=== PATIENT | female | born 1960 | race Caucasian/White ===

== ENCOUNTER 2019-09-11 01:46 | Outpatient (CLI) | payer OTHER, SELFPAY ==
[2019-09-11 10:50] LABS: Anion Gap 7.5 mmol/L (3-11); BUN 17 mg/dL (7-18); CO2 30.5 mmol/L (21.0-32.0); CREATININE 0.67 mg/dL (0.55-1.02); Calcium 9.4 mg/dL (8.5-10.1); Calculated LDL 104 mg/dL (<100); Chloride 105 mmol/L (98-107); Cholesterol 180 mg/dL (<200); Glucose 83 mg/dL (74-106); HDL Cholesterol 49 mg/dL (40-60); Potassium 4.5 mmol/L (3.5-5.1); Sodium 143 mmol/L (136-145); Triglyceride 136 mg/dL (<150)
[2019-09-13 16:47] LABS: Hemoglobin A1C 5.4 % (3.8-5.6)
== END 2019-09-11 02:06 ==
PROVIDERS: PCP Nurse Practitioner Family; Visit Provider Nurse Practitioner Family
DX: Z00.00 Encounter for general adult medical examination without abnormal findings (principal); Z13.1 Encounter for screening for diabetes mellitus; Z13.220 Encounter for screening for lipoid disorders; Z13.228 Encounter for screening for other metabolic disorders
CPT/HCPCS: 36415; 80048; 80061; 83036

== ENCOUNTER 2020-03-06 01:05 | Outpatient (CLI) | payer OTHER, SELFPAY ==
--- NOTE | 2020-03-06 08:30 | DI.MAMMO_ITS ---
EXAM: MAMMO SCREENING CLINICAL HISTORY: screening,Z12.39 TECHNIQUE: Mammograms were interpreted according to the usual protocol including computer analysis w [employer] CAD system, tomosynthesis and C-view imaging. COMPARISON: 2009 through 2017 FINDINGS: The breasts are composed of scattered fibroglandular densities, Breast Density category B. No suspicious masses or suspicious microcalcifications are seen. No skin thickening or abnormal axillary lymph nodes are seen. There has been no significant change from prior exams. IMPRESSION: BI-RADS Category 1, Negative mammogram Yearly screening mammography is recommended. Breast Density Category B, scattered fibroglandular densities. A negative radiographic report should not delay biopsy if a dominant or clinically suspicious mass is present. Up to ten percent of cancers are not identified on mammography. A negative report may reinforce clinical impression. Adenosis and dense breasts may obscure an underlying neoplasm. False positive reports average 6 to 10%. Patient will receive a letter notifying them of these results.
== END 2020-03-06 01:25 ==
PROVIDERS: PCP Nurse Practitioner Family; Visit Provider Nurse Practitioner Family
DX: Z12.31 Encounter for screening mammogram for malignant neoplasm of breast (principal); R92.2 Inconclusive mammogram
CPT/HCPCS: 77063; 77067

== ENCOUNTER 2021-03-01 04:16 | Outpatient (CLI) | payer OTHER, SELFPAY ==
[2021-03-01 09:12] LABS: Anion Gap 8.2 mmol/L (3-11); BUN 14 mg/dL (7-18); CO2 27.8 mmol/L (21.0-32.0); CREATININE 0.8 mg/dL (0.55-1.02); Calcium 9.5 mg/dL (8.5-10.1); Calculated LDL 103 mg/dL (<100); Chloride 107 mmol/L (98-107); Cholesterol 180 mg/dL (<200); Glucose 97 mg/dL (74-106); HDL Cholesterol 64 mg/dL (40-60); Potassium 4.9 mmol/L (3.5-5.1); Sodium 143 mmol/L (136-145); Triglyceride 67 mg/dL (<150)
== END 2021-03-01 04:17 | disposition home or self-care (01) ==
LOC: LBO 04:16
PROVIDERS: PCP Nurse Practitioner Family; Visit Provider Nurse Practitioner Family
DX: E78.5 Hyperlipidemia, unspecified (principal)
CPT/HCPCS: 36415; 80048; 80061

== ENCOUNTER 2021-03-19 02:05 | Outpatient (CLI) | payer OTHER, SELFPAY ==
--- NOTE | 2021-03-19 06:45 | DI.MAMMO_ITS ---
Exam(s) MAMMO SCREENING EXAM: MAMMO SCREENING CLINICAL HISTORY: screening,Z12.39 TECHNIQUE: Bilateral full field digital CC and MLO mammographic images were obtained with 3D tomosyn thesis and utilizing computer aided detection (CAD). COMPARISON: Available for comparison. FINDINGS: Masses/Architectural Distortion: None seen. Microcalcifications: No suspicious pleomorphic-type are seen. Skin Thickening/Nipple Retraction: None. IMPRESSION: 1. No significant interval change with no specific features of malignancy noted. 2. Unless there is more urgent need, screening mammography is recommended, as per [place] [employer] guidelines. BI-RADS Category 1 - Negative Breast Density - Category B - Scattered areas of fibroglandular density Breast density category C or D implies that the patient has dense breast tissue. Dense breast tissue is very common and is not abnormal but dense breast tissue can make it harder to find cancer on a ma mmogram. Also, dense breast tissue may increase their breast cancer risk. This information about the result of the mammogram report was provided to the patient to raise their awareness. Use this report when you speak with the patient about their risks for breast cancer, which includes their family hist ory. At that time, you may recommend for more screening tests (Ultrasound or MRI) as they might be us eful based on their risk. A negative radiographic report should not delay biopsy if a dominant or clinically suspicious mass is present. Up to ten percent of cancers are not identified on mammography. A negative report may reinforce clinical impression. Adenosis and dense breasts may obscure an underlying neoplasm. False positive reports average 6 to 10%. Patient will receive a letter notifying them of these results.
== END 2021-03-19 02:25 ==
PROVIDERS: PCP Nurse Practitioner Family; Visit Provider Nurse Practitioner Family
DX: Z12.31 Encounter for screening mammogram for malignant neoplasm of breast (principal)
CPT/HCPCS: 77063; 77067

== ENCOUNTER 2022-05-15 12:37 | Outpatient (REF) | payer OTHER, SELFPAY ==
--- NOTE | 2022-05-15 11:30 | PAPFT_PTH ---
PATIENT: Kellie Franklin LOC: [facility] U#:[id number] AGE/SX: 62/F ROOM: RE05/15/[address]: ANTONIO Morgan : 1960 BED: DIS: 05/15/2022 SPEC #: [id number] RECD: 05/15/22 13:24 STATUS: KIMBER RERosangela #: [id number] BARBIE: 05/15/22 11:[address]: Patricia Pisano DEPT: [facility] Cytology RECD BY: Blanca Parmar Tissues: 1 - CX/ENDOCX FOR PAP SMEARS Procedures: PAP THIN PREP/UVM Screening HPV DNA PROBE Comments: [id number]
== END 2022-05-15 12:38 | disposition home or self-care (01) ==
LOC: LBN 12:37
PROVIDERS: PCP Nurse Practitioner Family; Visit Provider Nurse Practitioner Family
DX: R87.610 Atypical squamous cells of undetermined significance on cytologic smear of cervix (ASC-US) (principal); Z12.4 Encounter for screening for malignant neoplasm of cervix; Z11.51 Encounter for screening for human papillomavirus (HPV); Z00.00 Encounter for general adult medical examination without abnormal findings
CPT/HCPCS: 88142; 87624

== ENCOUNTER → 2022-05-22 02:47 | Outpatient (CLI) | payer OTHER, SELFPAY ==
--- NOTE | 2022-05-22 15:06 | DI.MAMMO_ITS ---
Exam(s) MAMMO SCREENING EXAM: MAMMO SCREENING CLINICAL HISTORY: screening,z12.39 TECHNIQUE: Mammograms were interpreted according to the usual protocol including computer analysis w [employer] CAD system, tomosynthesis and C-view imaging. COMPARISON: 2011 through 2020 FINDINGS: The breasts are composed of scattered fibroglandular densities, Breast Density category B. No suspicious masses or suspicious microcalcifications are seen. No skin thickening or abnormal axillary lymph nodes are seen. There has been no significant change from prior exams. IMPRESSION: BI-RADS Category 1, Negative mammogram Yearly screening mammography is recommended. Breast Density - Category B, scattered fibroglandular densities. A negative radiographic report should not delay biopsy if a dominant or clinically suspicious mass is present. Up to ten percent of cancers are not identified on mammography. A negative report may reinforce clinical impression. Adenosis and dense breasts may obscure an underlying neoplasm. False positive reports average 6 to 10%. Patient will receive a letter notifying them of these results.
== END ==
PROVIDERS: PCP Nurse Practitioner Family; Visit Provider Nurse Practitioner Family
DX: Z12.31 Encounter for screening mammogram for malignant neoplasm of breast (principal)
CPT/HCPCS: 77063; 77067

== ENCOUNTER → 2023-06-03 00:38 | Outpatient (CLI) | payer OTHER, SELFPAY ==
--- NOTE | 2023-06-03 07:30 | DI.MAMMO_ITS ---
Exam(s) MAMMO SCREENING EXAM: MAMMO SCREENING CLINICAL HISTORY: screening,z12.39 TECHNIQUE: Mammograms were interpreted according to the usual protocol including computer analysis w [employer] CAD system, tomosynthesis and C-view imaging. COMPARISON: 2012 through 2021 FINDINGS: The breasts are composed of scattered fibroglandular densities, Breast Density category B. No suspicious masses or suspicious microcalcifications are seen. No skin thickening or abnormal axillary lymph nodes are seen. There has been no significant change from prior exams. IMPRESSION: BI-RADS Category 1, Negative mammogram Yearly screening mammography is recommended. Breast Density - Category B, scattered fibroglandular densities. A negative radiographic report should not delay biopsy if a dominant or clinically suspicious mass is present. Up to ten percent of cancers are not identified on mammography. A negative report may reinforce clinical impression. Adenosis and dense breasts may obscure an underlying neoplasm. False positive reports average 6 to 10%. Patient will receive a letter notifying them of these results.
== END ==
PROVIDERS: PCP Nurse Practitioner Family; Visit Provider Nurse Practitioner Family
DX: Z12.31 Encounter for screening mammogram for malignant neoplasm of breast (principal)
CPT/HCPCS: 77063; 77067

== ENCOUNTER 2023-06-04 02:59 | Outpatient (CLI) | payer OTHER, SELFPAY ==
[2023-06-04 13:05] LABS: Anion Gap 8.8 mmol/L (3-11); BUN 19 mg/dL (7-18); CO2 27.2 mmol/L (21.0-32.0); CREATININE 0.7 mg/dL (0.55-1.02); Calcium 9.5 mg/dL (8.5-10.1); Calculated LDL 141 mg/dL (<100); Chloride 105 mmol/L (98-107); Cholesterol 255 mg/dL (<200); Estimated GFR 97.72 (mL/min/1.73m2); Glucose 82 mg/dL (74-106); HDL Cholesterol 71 mg/dL (40-60); Potassium 3.6 mmol/L (3.5-5.1); Sodium 141 mmol/L (136-145); Triglyceride 219 mg/dL (<150)
[2023-06-05 11:15] LABS: Hepatitis C Ab w Rflx HCV PCR Negative (Negative)
== END 2023-06-04 03:00 | disposition home or self-care (01) ==
LOC: LBO 02:59
PROVIDERS: PCP Nurse Practitioner Family; Visit Provider Nurse Practitioner Family
DX: Z00.00 Encounter for general adult medical examination without abnormal findings (principal); E78.5 Hyperlipidemia, unspecified; Z11.59 Encounter for screening for other viral diseases; R03.0 Elevated blood-pressure reading, without diagnosis of hypertension
CPT/HCPCS: 36415; 80048; 80061; 86803

== ENCOUNTER 2023-09-11 08:05 | Outpatient (CLI) | payer OTHER, SELFPAY ==
[2023-09-11 12:21] LABS: Abs Immature Grans 0.01 10^3/uL (0.0-0.06); Absolute Basophil Count 0.06 10^3/uL (0.0-0.2); Absolute Eosinophil Count 0.05 10^3/uL (0.0-0.7); Absolute Lymphocyte Count 1.72 10^3/uL (1.2-3.4); Absolute Monocyte Count 0.49 10^3/uL (0.1-0.8); Absolute Neutrophil Count 2.92 10^3/uL (1.2-6.7); Basophils % 1.1; HCT 42.1 % (36.0-46.0); HGB 14.4 g/dL (11.2-15.7); Immature Grans % 0.2; Lymphocytes % 32.8; MCH 31.9 pg (27.0-33.0); MCHC 34.2 % (32.0-36.0); MCV 93 fL (80-95); MPV 9.3 fL (8.0-11.0); Monocytes % 9.3; Neutrophils % 55.6; Platelet Count 295 10^3/uL (130-400); RBC 4.52 10^6/uL (3.93-5.22); RDW 12.5 % (11.7-14.6); RDW-SD 42.9 fL; WBC 5.25 10^3/uL (4.4-10.8)
[2023-09-11 12:47] LABS: TSH (W/Ref FT4) 3.11 uIU/mL (0.36-3.74)
== END 2023-09-11 08:06 | disposition home or self-care (01) ==
LOC: LOS 08:05
PROVIDERS: PCP Nurse Practitioner Family; Referring Provider Nurse Practitioner Family; Visit Provider Nurse Practitioner Family
DX: I10 Essential (primary) hypertension (principal)
CPT/HCPCS: 36415; 83036; 84443; 85025

== ENCOUNTER 2023-12-02 05:11 | Outpatient (CLI) | payer OTHER, SELFPAY ==
[2023-12-02 16:44] LABS: Anion Gap 9.8 mmol/L (3-11); BUN 27 mg/dL (7-18); CO2 28.2 mmol/L (21.0-32.0); CREATININE 0.8 mg/dL (0.55-1.02); Calcium 9.4 mg/dL (8.5-10.1); Chloride 104 mmol/L (98-107); Estimated GFR 83.26 (mL/min/1.73m2); Glucose 97 mg/dL (74-106); Potassium 4.3 mmol/L (3.5-5.1); Sodium 142 mmol/L (136-145)
== END 2023-12-02 05:12 | disposition home or self-care (01) ==
PROVIDERS: PCP Nurse Practitioner Family; Visit Provider Nurse Practitioner Family
DX: I10 Essential (primary) hypertension (principal)
CPT/HCPCS: 36415; 80048

== ENCOUNTER 2024-03-23 12:51 | Outpatient (CLI) | payer BC, SELFPAY ==
--- NOTE | 2024-03-23 12:15 | DI.RAD_ITS ---
Exam(s) XR CHEST 2V PA LATERAL EXAM: XR CHEST 2V PA LATERAL CLINICAL HISTORY: cough J18.9 PNEUMONIA TECHNIQUE: 2D digital imaging was performed of the chest. Two images were obtained. PA and lateral views were obtained. COMPARISON: No exams were available for comparison FINDINGS: MEDIASTINUM: Normal. HEART: Normal. PULMONARY VASCULATURE: Normal. LUNGS: Clear. PLEURAL SPACE: No pleural effusion or pneumothorax. BONE:Within normal limits for the patient's age. OTHER FINDINGS:Normal. IMPRESSION: No acute pulmonary findings. DATA REPOSITORY: RADIATION DOSE DELIVERED:
== END 2024-03-23 13:11 ==
LOC: DI 12:51
PROVIDERS: PCP Nurse Practitioner Family; Visit Provider Physician Assistant
DX: J18.9 Pneumonia, unspecified organism (principal)
CPT/HCPCS: 71046

== ENCOUNTER 2024-06-04 00:12 | Outpatient (CLI) | payer BC, SELFPAY ==
--- NOTE | 2024-06-04 08:07 | DI.MAMMO_ITS ---
Exam(s) MAMMO SCREENING EXAM: MAMMO SCREENING CLINICAL HISTORY: screening,z12.39 TECHNIQUE: Mammograms were interpreted according to the usual protocol including computer analysis w [employer] CAD system, tomosynthesis and C-view imaging. COMPARISON: 2015 through 2022 FINDINGS: The breasts are composed of scattered fibroglandular densities, Breast Density category B. No suspicious masses or suspicious microcalcifications are seen. No skin thickening or abnormal axillary lymph nodes are seen. There has been no significant change from prior exams. IMPRESSION: BI-RADS Category 1, Negative mammogram Yearly screening mammography is recommended. Breast Density - Category B, scattered fibroglandular densities. A negative radiographic report should not delay biopsy if a dominant or clinically suspicious mass is present. Up to ten percent of cancers are not identified on mammography. A negative report may reinforce clinical impression. Adenosis and dense breasts may obscure an underlying neoplasm. False positive reports average 6 to 10%. Patient will receive a letter notifying them of these results.
== END 2024-06-04 00:32 ==
LOC: DI 00:12
PROVIDERS: PCP Nurse Practitioner Family; Visit Provider Nurse Practitioner Family
DX: Z12.31 Encounter for screening mammogram for malignant neoplasm of breast (principal); R92.323 Mammographic fibroglandular density, bilateral breasts
CPT/HCPCS: 77063; 77067

== ENCOUNTER 2024-07-20 09:21 | Emergency (ER) | payer BC, SELFPAY ==
[2024-07-20 09:25] VITALS: BP 170/102; PULSE 66; RESP 18; TEMP 36.6; O2SAT 99
--- NOTE | 2024-07-20 09:38 | DI.CT_ITS ---
Exam(s) CT RENAL COLIC WO EXAM: CT RENAL COLIC WO CLINICAL HISTORY: left flank pain. TECHNIQUE: Imaging Protocol: Axial computed tomography images with coronal and sagittal reformatted images were created and reviewed CONTRAST MATERIAL: Intravenous: none Oral: None COMPARISON: No exams were available for comparison FINDINGS: VISUALIZED LUNG BASES: No nodules nor pleural effusions evident. ABDOMEN: There is no ascites. LIVER: There are no obvious focal hepatic lesions evident of this noninfused study. GALLBLADDER/BILIARY: No obvious gallbladder pathology. CBD is not dilated. PANCREAS: No evidence of pancreatic mass nor dilatation of the pancreatic duct. SPLEEN: Spleen is not enlarged. No obvious intrasplenic lesions. ADRENALS: There are no significant adrenal masses. KIDNEYS:Right kidney unremarkable. There is mild hydronephrosis and perinephric streaking on the lef t side and minimal dilatation left ureter. There is a 3 mm calculus at the intramural aspect of the left ureterovesical junction/bladder level. No other radiopaque calculi seen in the ureter.. No foster id renal masses nor significant cysts. ABDOMINAL AORTA: Abdominal aorta is not enlarged. LYMPH NODES: There is no retroperitoneal nor paraaortic adenopathy. ABDOMINAL WALL: No evidence of significant anterior abdominal wall nor inguinal hernia. GI: There is no evidence of bowel obstruction, free air, nor abscess. PELVIS: LYMPH NODES: There is no intrapelvic nor inguinal adenopathy. GI: No evidence of appendicitis.No evidence of sigmoid diverticulitis. URINARY BLADDER: Intramural calculus at the left UVJ as described above. REPRODUCTIVE: Uterus is enlarged and lobulated. Most probably related to fibroids. One of these on left size appears to be partially calcified. Cannot determine endometrium from myometrium here. No ominous adnexal masses evident. OSSEOUS: No significant osseous lesions. IMPRESSION: 1. The main acute finding here is a small 2-3 millimeter left-sided calculus at intramural aspect of the left UVJ with mild ipsilateral hydronephrosis. No other focal findings in the kidneys. 2. Enlarged and lobulated uterus which may be related to prominent fibroids but cannot tell endometri um from myometrium here. Recommend follow-up pelvic ultrasound for adequate visualization of the end ometrium. . Discussed by phone with ER physician 07/20/2024 at 10:50 a.m. RADIATION DOSE DELIVERED: 659.79mGy.cm Total DLP DATA REPOSITORY: All CT scans at this facility are submitted to the National Radiology Data Registry (NRDR) Dose Index Registry (DIR) with the [employer] (ACR). RADIATION OPTIMIZATION: All CT scans at this facility use at least one of these dose optimization te chniques: automated exposure control; mA and/or kV adjustment per patient size (includes targeted exa ms where dose is matched to clinical indication); or iterative reconstruction.
--- NOTE | 2024-07-20 09:39 | W.ED.GENAD ---
Discharge Plan Disposition Patient Disposition: Home Condition: Stable Discharge Details Clinical Impression: Kidney stone, Flank pain Primary Care Provider: Patricia Pisano ED Provider: Micheal Eaton Home Meds and New Rx's Prescriptions: Continued lisinopril 20 mg tablet 20 mg PO DAILY Qty: 90 3RF Discharge Instructions Additional Instructions: You have a small kidney stone that looks like it is almost in your bladder. It would likely pass on its own. For pain you can take 1000 mg of acetaminophen and 600 mg of ibuprofen every 6 hours as needed If you are still having symptoms in a week and not improving follow-up with your primary care provider You did also have what appears to be a uterine fibroid and a CAT scan. There is nothing emergent to do for this but usually her primary care provider know about this when you follow-up with them in have a follow-up ultrasound. If you feel more ill, have severe worsening pain or new symptoms such as high fevers return to the emergency department for reevaluation HPI General Mode of arrival: ambulatory. Date/Time Provider Initiated Documentation: 07/20/24 09:25. Limitations to Documentation: no limitations. Information obtained by: patient. History of Present Illness 64 year old F presents to the emergency department with the chief complaint of left lower back pain, described as moderate, Quality is described as aching and sharp, and is localized to the back. Patient abdomen. Patient started experiencing this hour(s) (3) and it has been constant. No relieving factors improve symptom(s), No exacerbating factors reported . Patient notes other (urinary urgency); denies chest pain, fever/chills and shortness of breath. Patient did receive the following treatments prior to arrival, none Related Data Home Medications ?Medication ?Instructions ?Recorded ?Confirmed lisinopril 20 mg tablet 20 mg PO DAILY #90 tabs 10/16/23 07/20/24 Previous Rx's ?Medication ?Instructions ?Recorded lisinopril 20 mg tablet 20 mg PO DAILY #90 tabs 10/16/23 Allergies Allergy/AdvReac Type Severity Reaction Status Date / Time No Known Allergies Allergy Verified 07/20/24 09:29 General Stated Complaint: FlankPain TERRANCE: 3 Review of Systems All systems reviewed & are unremarkable except as noted in HPI and below Constitutional Constitutional: Denies chills, Denies fever(s) and Denies weakness Cardiovascular Cardiovascular: Denies chest pain and Denies dyspnea Respiratory Respiratory: Denies cough and Denies dyspnea Gastrointestinal Gastrointestinal: Reports abdominal pain, Denies nausea and Denies vomiting Genitourinary Genitourinary: Reports urinary urgency Neurologic Neurologic: Denies weakness Exam Const General: no acute distress Orientation: alert [facility] Head: normal to inspection Ears: external ears normal General nose exam: external nose normal Mouth: moist mucous membranes Eyes General: appearance normal, both eyes and all related structures Neck Neck: normal visual inspection Resp Effort & Inspection: normal respiratory effort and able to speak in complete sentences Cardio Rate: regular rate GI Palpation: soft and nontender Back/Spine/Pelvis Back: CVA tenderness Skin General skin exam: no rashes or lesions noted Neuro General: patient alert and patient oriented x3 Extrem General: normal to inspection Psych Mental Status: mental status grossly normal Course Vital Signs Vital signs: Vital Signs Temperature 36.6 C 07/20/24 09:25 Pulse 66 07/20/24 09:25 Respiratory Rate 18 07/20/24 09:25 Blood Pressure 170/102 H 07/20/24 09:25 Pulse Oximetry 99 07/20/24 09:25 Temperature 36.6 C 07/20/24 09:25 Pulse 66 07/20/24 09:25 Respiratory Rate 18 07/20/24 09:25 Blood Pressure 170/102 H 07/20/24 09:25 Pulse Oximetry 99 07/20/24 09:25 Oxygen Delivery Method Room Air 07/20/24 09:25 Oxygen Flow Rate 0 07/20/24 09:25 Pain Level 8 07/20/24 09:34 Medical Decision Making 64-year-old female with a history of hypertension hyperlipidemia comes in with several hours of acute onset left lower back pain that she says intermittently radiates to her abdomen. She denies any vomiting, fevers, chills. She has noted some urinary urgency as well. Denies any chest pain or difficulty breathing. She has tenderness in the left CVA area, no rashes or visible or palpable deformities. No saddle anesthesia. She currently has no abdominal tenderness on exam. Her symptoms seem consistent with likely pyelonephritis versus kidney stone, will check CBC, CMP, lipase and urinalysis along with CT renal colic and reassess. Patient CT shows small distal kidney stone that appears to almost be in the bladder. Blood work unremarkable, patient did just urinate so UA pending. As well as likely a uterine fibroid but advised she will need follow-up ultrasound as an outpatient for this. Urine reassuring against infection. She is stable and asymptomatic. Discussed that she only has a small stone with no evidence of other stones in her kidneys we will defer urology referral at this time. She will follow-up with her PCP as needed also for follow-up ultrasound of her uterus. Return precautions given Differential Diagnosis Differential Diagnosis: Pyelonephritis, kidney stone, back strain Imaging Data Radiologic Study: Attestation: I personally reviewed and interpreted this imaging study as follows: Imaging: CT Scan Radiologist's impression: IMPRESSION: 1. The main acute finding here is a small 2-3 millimeter left-sided calculus at intramural aspect of the left UVJ with mild ipsilateral hydronephrosis. No other focal findings in the kidneys. 2. Enlarged and lobulated uterus which may be related to prominent fibroids but cannot tell endometrium from myometrium here. Recommend follow-up pelvic ultrasound for adequate visualization of the endometrium Lab Data Lab results reviewed: Yes I reviewed the patient's lab results. Quality:SDOH Health Related Social Needs: No Data to Display PFSH All Active Problems (Updated 07/20/24 @ 11:01 by Micheal Eaton MD) Flank pain (Acute) Kidney stone (Chronic) Tinnitus (Acute) Hypertension (Chronic) Hyperlipidemia (Chronic) Rosacea (Chronic) BPPV (benign paroxysmal positional vertigo) (Chronic) Medical History Asthma Surgical History S/P colonoscopy (09/10/13) H/O hand surgery (~1989) Left 4th and 5th MCP fracture repair History of mandibular surgery Jaw reconstruction for dental deformity Family History (Updated 05/19/24 @ 11:52 by Patricia Pisano NP) Mother , at 70 COPD (chronic obstructive pulmonary disease) Father , at 75 Lung cancer Brother , at 37 of substance abuse Alcohol abuse Substance abuse Sister Breast cancer Hypertension Thyroid disease Diabetes Sister Breast cancer Paternal Grandfather Neoplasm Unknown type Paternal Grandmother Breast cancer Maternal Grandfather No problems noted. Maternal Grandmother No problems noted. Social History Smoking/Tobacco Use Status: Never Second Hand Exposure: Yes Smoking risk assessment performed?: Yes Alcohol Intake: current Alcohol Intake frequency: a few times a month Alcohol type: beer Drug use: Never Substance use type: does not use Caregiver/Support person: No Household members: none Housing: house Communication Needs: None Do you need help understanding health information?: Never Pets and animals: No Sexually active: Yes Do you think of yourself as: straight/heterosexual Current gender identity: female What is your relationship status?: never How often do you talk on the phone with friends or family?: once per week How often do you get together with friends or relatives?: twice per week How often do you attend spiritism or adventist services?: 1-3 times per year Do you belong to any clubs or organized social groups?: yes Panel score (0-1 are the most socially isolated patients): 2 What type of physical activity do you participate in: walking and bicycling Duration: 45-60 minutes/day Frequency: 3-4 times per week Edith/Scientology: Gnosticist Special edith needs: No Seatbelt use: always Helmet use: Yes Helmet use: always Drive intox or ride w/intox funeral limousine driver: No Female Reproductive History Menstrual control method: pills Menopause type: natural History History 0 Para Hx # Term Pregnancies Multiple births Hx # Pregnancies Ectopic pregnancies AB induced Hx Number of Living Children AB spontaneous
[2024-07-20 09:47] LABS: Abs Immature Grans 0.01 10^3/uL (0.0-0.06); Absolute Basophil Count 0.04 10^3/uL (0.0-0.2); Absolute Eosinophil Count 0.02 10^3/uL (0.0-0.7); Absolute Lymphocyte Count 2.58 10^3/uL (1.2-3.4); Absolute Monocyte Count 0.67 10^3/uL (0.1-0.8); Absolute Neutrophil Count 3.35 10^3/uL (1.2-6.7); Basophils % 0.6 %; Eosinophils % 0.3 %; HCT 41.5 % (36.0-46.0); Immature Grans % 0.1 %; Lymphocytes % 38.7 %; MCH 30.9 pg (27.0-33.0); MCHC 33.7 % (32.0-36.0); MCV 92 fL (80-95); MPV 8.4 fL (8.0-11.0); Neutrophils % 50.3 %; Platelet Count 280 10^3/uL (130-400); RBC 4.53 10^6/uL (3.93-5.22); RDW-SD 43.8 fL; WBC 6.67 10^3/uL (4.4-10.8)
[2024-07-20] MEDS: Ondansetron 4 MG/2 ML VIAL IVP (09:56)
[2024-07-20] MEDS: Ketorolac 15 MG/ML VIAL IVP (09:56)
[2024-07-20 10:02] LABS: ALT 22 U/L (14-59); AST 22 U/L (15-37); Albumin 3.8 g/dL (3.4-5.0); Alkaline Phosphatase 120 U/L (46-116); Anion Gap 4.4 mmol/L (3-11); BUN 14 mg/dL (7-18); CO2 30.6 mmol/L (21.0-32.0); CREATININE 0.9 mg/dL (0.55-1.02); Calcium 9.7 mg/dL (8.5-10.1); Chloride 104 mmol/L (98-107); Estimated GFR 71.83 (mL/min/1.73m2); Glucose 122 mg/dL (74-106); Lipase 26 U/L (<78); Magnesium 1.8 mg/dL (1.8-2.4); Potassium 4.1 mmol/L (3.5-5.1); Sodium 139 mmol/L (136-145); Total Protein 8.1 g/dL (6.4-8.2)
[2024-07-20 10:36] VITALS: O2SAT 98
[2024-07-20 10:37] VITALS: BP 132/74; PULSE 72; O2SAT 94
[2024-07-20 10:40] VITALS: O2SAT 95
[2024-07-20 11:01] LABS: Bilirubin Negative (Negative); Blood Large (Negative); Clarity Clear (Clear); Glucose Negative (Negative); Ketones Negative (Negative); Leukocyte Esterase Negative (Negative); Nitrite Negative (Negative); Specific Gravity >= 1.030 (1.005-1.025); Urobilinogen 0.2 mg/dL (Up to 0.2)
[2024-07-20 11:12] LABS: Bacteria Moderate HPF (Negative); C & S Indicated? No/Sq. Contamination; Casts Negative LPF (Negative); Crystals Negative HPF (Negative); Epithelial Cells Many HPF (Negative); Mucus Heavy (Negative); Other Cells Negative (Negative); RBC >50 HPF (0-2)
[2024-07-20 11:36] VITALS: BP 122/79; PULSE 77; RESP 18; TEMP 36.4; O2SAT 98
[2024-07-20 11:39] VITALS: O2SAT 97
== END 2024-07-20 11:49 | disposition home or self-care (01) ==
PROVIDERS: Emergency Provider Emergency Medicine; PCP Nurse Practitioner Family
DX: N13.2 Hydronephrosis with renal and ureteral calculous obstruction (principal); I10 Essential (primary) hypertension; E78.5 Hyperlipidemia, unspecified
CPT/HCPCS: 80053; 83690; 74176; 81003; 81015; 83735; 85025; J1885; J2405

== ENCOUNTER 2024-07-30 07:38 | Day surgery (SDC) | payer BC, SELFPAY ==
--- NOTE | 2024-07-29 14:48 | W.PM.DSUDISC ---
Date of service: 07/30/24 Discharge Plan Disposition Patient Disposition: Home Condition: Good Discharge Details Reason For Visit: screening colonoscopy Attending Provider: Omer Camejo Primary Care Provider: Patricia Pisano Home Meds and New Rx's Prescriptions: Continued lisinopril 20 mg tablet 20 mg PO DAILY Qty: 90 3RF Discharge Instructions Instructions: Colon polyps Additional Instructions: Kellie, I hope you are comfortable throughout the colonoscopy today, and that you feel great this afternoon. Everything went very smoothly. I did find and remove a single polyp today. Based on the appearance, I suspect this might be a hyperplastic polyp, which is not at all dangerous. However, to be safe, I will send this off to the pathologist for their review. Once I know the results of the analysis, the my office will be in touch with recommendations for the timing of your next colonoscopy. If you have any questions, or need anything at all, please do not hesitate to ask. 1. If tolerated, consume a soft, low fiber diet for 1-2 days. [address] Do not drive, drink alcohol, operate machinery, make critical decisions, or do activities that require coordination or balance for 24 hours. 3. Because air was put into your colon during the procedure, expelling air from your rectum (passing gas or farting) is normal. 4. You may not have a bowel movement for 1-3 days because of the colonoscopy prep. This is normal. 5. Go directly to the emergency room if you notice any of the following: Develop chills (warm to touch), or if you have a thermometer and your temperature is above 101 Difficulty breathing or difficultly swallowing Persistent vomiting Severe abdominal pain, other than gas cramps Severe chest pain Black, tarry stools Any bleeding ? exceeding one tablespoon 6. Call your physician if the site where your intravenous was started becomes red, swollen, painful, and warm to touch. 7. Your physician has reviewed your pre-procedure medications. Please continue to take those medications as previously ordered. You will be given specific information/education regarding any changes to your medications before leaving. Activity:: Activity as Tolerated Diet:: As Tolerated Discharge Orders Discharge Orders: Discharge Order (Routine); Ordered 07/29/24 Ordered By: Omer Camejo DS: Diagnosis Discharge Diagnosis (1) Encounter for screening colonoscopy: Status: Acute Asessment and Plan: Follow-up on polypectomy results
--- NOTE | 2024-07-29 14:49 | COLE_ITS ---
Date of service: 07/30/24 Time of Service: 09:36 Colonoscopy Report Date of procedure: 07/30/24 Pre-op diagnosis general: screening colonoscopy Post-op diagnosis procedure note: other (Colon polyp) Procedure: colonoscopy with polypectomy Surgeon: Omer Camejo Anesthesia Type: General:No Airway Estimated blood loss (mL): 5 Pathology: other (0.25 cm flat polyp at 30 cm) Complications: None Disposition: same day Indications: Jim is a 64 year old woman who needs her next screening colonoscopy Prep: Miralax/Dulcolax Procedure Start Time: :18 Procedure End Time: :30 Retraction Time: 7 Findings: 0.25 cm flat polyp at 30 cm Procedure Description: After the induction of anesthesia, and with the patient in left lateral decubitus position, I began by performing an external anorectal exam.? Perineum and skin were normal, as was the anal verge.? There was no evidence of external hemorrhoids.? Next, I performed a digital rectal exam.? I did not appreciate any abnormal findings.? Next, I advanced a colonoscope into the rectal vault.? I performed retroflexion.? This appeared normal.? Using insufflation, I then advanced the colonoscope beyond the rectal folds and into the sigmoid colon before advancing towards the cecum.? The quality of the prep was excellent.? The scope was noted to be in the cecum by identification of the ileocecal valve and appendiceal orifice.? I then began withdrawing the colonoscope using repeated irrigation as necessary for full evaluation of the colonic mucosa. ?Around 30 cm from the anal verge a 0.25 cm flat polyp. This was removed with cold forceps without any issues. Once the scope was withdrawn to the level of the rectum, great care was taken to examine portions of the rectal folds.? Finally, the scope was withdrawn and the patient was brought to the same-day surgery recovery unit as the anesthetic wore off. ?The findings and instructions were shared with the patient prior to discharge. Frederick Bowel Prep Frederick Bowel Prep Right Colon: 3 Left Colon: 3 Transverse Colon: 3 Total Score: 9
[2024-07-30 07:58] VITALS: BP 143/90; PULSE 82; RESP 20; TEMP 36.5; O2SAT 98
[2024-07-30] MEDS: Lactated Ringers 1,000 ML 80 ML IV (08:15)
[2024-07-30 08:41] VITALS: BMI 29.7
--- NOTE | 2024-07-30 08:41 | ANES.PREOP_ITS ---
General Info Date of Service Date Performed: 07/30/24 Height: 5 ft 5 in Weight: 81.1 kg Body Mass Index (BMI): 29.7 Surgical Procedure: Operation Date: 07/30/24 09:05 Proposed Procedure Side Surgeon p Colonoscopy Omer Camejo MD Meds Allergies and Home Medications Allergies Allergy/AdvReac Type Severity Reaction Status Date / Time No Known Allergies Allergy Verified 07/30/24 07:56 Home Medication ?Medication ?Instructions ?Recorded lisinopril 20 mg tablet 20 mg PO DAILY #90 tabs 10/16/23 Current Visit Medications: Current Medications Generic Name Dose Route Start Last Admin Trade Name Freq PRN Reason Stop Dose Admin Ringer's Solution 1,000 mls @ 80 mls/hr 07/30/24 07:30 07/30/24 08:15 IV 08/29/24 07:29 80 mls/hr INFUSION ARTURO Administration IV Miscellaneous Supplies 1 each 07/30/24 06:00 Iv Access IV 07/30/24 23:59 DIRECTED ARTURO Ondansetron HCl 4 mg 07/29/24 14:50 Ondansetron 4 Mg/2 Ml Vial IVP 08/28/24 14:49 Q4H PRN PRN Nausea / Vomiting Sodium Chloride 0 ml 07/30/24 06:00 Normal Saline Flush 10 Ml Syr IV 07/30/24 23:59 PRN PRN Sodium Chloride 0 ml 07/30/24 06:00 Normal Saline 10 Ml Vial IJ 07/30/24 23:59 DIRECTED PRN Sterile Water 0 ml 07/30/24 06:00 Water,Injection,Sterile 10 Ml Vial IJ 07/30/24 23:59 DIRECTED PRN PFSH Active Problems Active Problems: Problem Status Onset Code Encounter for screening colonoscopy Acute Z12.11 Flank pain Acute R10.9 Kidney stone Chronic N20.0 Tinnitus Acute H93.19 Hypertension Chronic I10 BPPV (benign paroxysmal positional vertigo) Chronic H81.10 Hyperlipidemia Chronic E78.5 Rosacea Chronic L71.9 Medical History Medical History Asthma Surgical History Surgical History S/P colonoscopy (09/10/13) H/O hand surgery (~1989) Left 4th and 5th MCP fracture repair History of mandibular surgery Jaw reconstruction for dental deformity 1975 Tobacco Smoking/Tobacco Use Status: Never Passive smoking exposure: Yes Second hand exposure: Yes Alcohol Alcohol Intake: current Alcohol intake frequency: a few times a month Alcohol type: beer Substance Use Substance use: Never Substance use type: does not use Details: alcohol: t-10 Prental History History 0 Para Hx # Term Pregnancies Multiple births Hx # Pregnancies Ectopic pregnancies AB induced Hx Number of Living Children AB spontaneous Vital Signs and Lab Results Vital Signs Most Recent Vital Signs in EMR: Most Recent Vital Signs Temp Pulse Resp BP Pulse Ox 36.5 C 82 20 143/90 H 98 07/30/24 07:58 07/30/24 07:58 07/30/24 07:58 07/30/24 07:58 07/30/24 07:58 Lab Results Blood Type / Crossmatch: No Data to Display Complete Blood Count: White Blood Count 6.67 10^3/uL (4.4-10.8) 07/20/24 09:43 Red Blood Count 4.53 10^6/uL (3.93-5.22) 07/20/24 09:43 Hemoglobin 14.0 g/dL (11.2-15.7) 07/20/24 09:43 Hematocrit 41.5 % (36.0-46.0) 07/20/24 09:43 Platelet Count 280 10^3/uL (130-400) 07/20/24 09:43 Complete Metabolic Panel: Sodium 139 mmol/L (136-145) 07/20/24 09:43 Potassium 4.1 mmol/L (3.5-5.1) 07/20/24 09:43 Chloride 104 mmol/L (98-107) 07/20/24 09:43 Carbon Dioxide 30.6 mmol/L (21.0-32.0) 07/20/24 09:43 BUN 14 mg/dL (7-18) 07/20/24 09:43 Creatinine 0.9 mg/dL (0.55-1.02) 07/20/24 09:43 Est GFR (CKD-EPI 2020) 71.83 (mL/min/1.73m2) 07/20/24 09:43 Magnesium 1.8 mg/dL (1.8-2.4) 07/20/24 09:43 Calcium 9.7 mg/dL (8.5-10.1) 07/20/24 09:43 Albumin 3.8 g/dL (3.4-5.0) 07/20/24 09:43 Glucose 122 mg/dL (74-106) H 07/20/24 09:43 Liver Function Panel: Alanine Aminotransferase (ALT/SGPT) 22 U/L (14-59) 07/20/24 09: 43 Aspartate Amino Transf (AST/SGOT) 22 U/L (15-37) 07/20/24 09:43 Coagulation Panel: No Data to Display Cardiac Panel: No Data to Display Arterial Blood Gas: No Data to Display Venous Blood Gas: No Data to Display Pancreas Panel: Lipase 26 U/L (<78) 07/20/24 09:43 Thyroid Panel: No Data to Display Infectious Disease: No Data to Display Blood Cultures: No Data to Display Toxicology Panel: No Data to Display Anesthesia Assessment and Plan Anesthesia History Personal History: No History of Anesthesia Complications Family History: No Family History of Anesthesia Complications Exercise Tolerance Exercise Tolerance: Metabolic Equivalents>4 Pertinent Negatives Pertinent Negatives: No Symptoms of GERD Cardiac & Pulmonary Exam Cardiac Exam: Normal S1/S2 Heart Sounds Pulmonary Exam: Clear Bilateral Breath Sounds Implantable Cardiac Device Does patient have a Pacemaker or an ICD?: No Airway Exam Known Difficult Airway: No Mallampati Class: 2 Mouth Opening: Normal (> 3cm) Thyromental Distance: Greater than 3 cm Neck Range of Motion: Full ROM Neck Circumference: Normal Teeth Condition: Normal Dentition ASA Classification ASA Score: ASA 2 Emergency Case?: No NPO Status NPO Status: NPO Clears >2 hours, Solids >8 hours Anesthesia Plan Resuscitation Status: Full Code Anesthesia Technique: General Anesthesia Airway Planned: Natural Airway Monitors Used: Standard Monitors
--- NOTE | 2024-07-30 09:28 | BOWEL_PTH ---
PATIENT: Kellie Franklin LOC: [facility] U#:[id number] AGE/SX: 64/F ROOM: RE07/30/[address]: Omer Camejo MD : 1960 BED: DIS: 07/30/2024 SPEC #: [id number] RECD: 07/30/24 13:06 STATUS: KIMBER RE #: [id number] BARBIE: 07/30/24 09:[address]: Omer Camejo DEPT: Surgical Specimen RECD BY: Blanca Parmar ENTERED: 07/30/24 13:07 SP TYPE: Bowel OTHR DR: ANTONIO Morgan Tissues: 1 - BIOPSY BOWEL Procedures: GROSS AND MICRO LEVEL 4 Comments: [id number]
[2024-07-30 09:35] VITALS: BP 127/88; PULSE 75; RESP 20; TEMP 36.6; O2SAT 99
[2024-07-30 09:54] VITALS: BP 180/83; PULSE 76; RESP 20; TEMP 36.5; O2SAT 98
--- NOTE | 2024-07-30 09:59 | W.ANESPOSTOP ---
Postoperative Evaluation Date, Time and Location Date Performed: 07/30/24 Time Performed: 09:46 Patient Location: Day Surgery Unit Vital Signs Most Recent Imported Vital Signs: Most Recent Vital Signs Temp Pulse Resp BP Pulse Ox 36.5 C 76 20 180/83 H 98 07/30/24 09:54 07/30/24 09:54 07/30/24 09:54 07/30/24 09:54 07/30/24 09:54 Pain Score Most Recent Pain Score: Most Recent Pain Score Pain Level 0 07/30/24 07:58 Assessment Mental Status: Awake (Alert & Oriented to Patient Baseline) Airway and Respiratory Function: Patent airway with normal (patient baseline) respiratory exam Cardiovascular Function: Hemodynamically Stable Hydration Status: Adequately Hydrated Nausea & Vomiting: No Nausea or Vomiting Pain: Pt. Denies Any Pain Peripheral Nerve Block: Patient did not receive a nerve block
== END 2024-07-30 10:05 | disposition home or self-care (01) ==
LOC: SUR 07:38
PROVIDERS: PCP Nurse Practitioner Family; Visit Provider Surgery
PROC: 0DJD8ZZ Inspection of Lower Intestinal Tract, Via Natural or Artificial Opening Endoscopic (ICD-10-PCS; CPT 45378; principal; 2024-07-30 09:00)
DX: Z12.11 Encounter for screening for malignant neoplasm of colon (principal); K63.5 Polyp of colon; I10 Essential (primary) hypertension
CPT/HCPCS: 45380; 88305; J2704

== ENCOUNTER 2025-05-23 08:41 | Outpatient (REF) | payer BC, SELFPAY ==
--- NOTE | 2025-05-23 07:30 | PAPFT_PTH ---
PATIENT: Kellie Franklin LOC: [facility] U#:[id number] AGE/SX: 65/F ROOM: RE05/23/[address]: ANTONIO Morgan : 1960 BED: DIS: 05/23/2025 SPEC #: [id number] RECD: 05/23/25 18:08 STATUS: KIMBER RERosangela #: [id number] BARBIE: 05/23/25 07:[address]: Patricia Pisano DEPT: [facility] Cytology RECD BY: Blanca Parmar Tissues: 1 - CX/ENDOCX FOR PAP SMEARS Procedures: PAP THIN PREP/[facility] Screening HPV DNA PROBE Comments: [id number] (HPV 16 & 18/45) (CHLAMYDIA/GC)
[2025-05-24 11:16] LABS: Chlamydia Result Negative (Negative); GC Result Negative (Negative)
== END 2025-05-23 08:42 | disposition home or self-care (01) ==
LOC: LBN 08:41
PROVIDERS: PCP Nurse Practitioner Family; Visit Provider Nurse Practitioner Family
DX: Z12.4 Encounter for screening for malignant neoplasm of cervix (principal)
CPT/HCPCS: 87491; 87591; 88142; 87624

== ENCOUNTER 2025-05-26 00:29 | Outpatient (CLI) | payer BC, SELFPAY ==
[2025-05-26 14:20] LABS: Hemoglobin A1C 5.4 % (<5.7)
[2025-05-26 14:34] LABS: ALT 19 U/L (14-59); AST 22 U/L (15-37); Albumin 3.9 g/dL (3.4-5.0); Alkaline Phosphatase 118 U/L (46-116); Anion Gap 7.9 mmol/L (3-11); BUN 22 mg/dL (7-18); Bilirubin, Total 0.4 mg/dL (0.2-1.0); CO2 30.1 mmol/L (21.0-32.0); Calcium 9.9 mg/dL (8.5-10.1); Calculated LDL 163 mg/dL (<100); Chloride 102 mmol/L (98-107); Cholesterol 247 mg/dL (<200); Estimated GFR 96.52 (mL/min/1.73m2); Glucose 88 mg/dL (74-106); HDL Cholesterol 61 mg/dL (>or=50); Potassium 4.4 mmol/L (3.5-5.1); Sodium 140 mmol/L (136-145); Total Protein 7.7 g/dL (6.4-8.2); Triglyceride 116 mg/dL (<150)
[2025-05-26 23:35] LABS: HIV-1/2 Ag & Ab Screen Negative (Negative)
[2025-05-26 23:42] LABS: HBs Antibody, Quant <3.1 mIU/mL (See Note); Hepatitis B Surface Antigen Negative (Negative)
== END 2025-05-26 00:30 | disposition home or self-care (01) ==
LOC: LOS 00:29
PROVIDERS: PCP Nurse Practitioner Family; Visit Provider Nurse Practitioner Family
DX: I10 Essential (primary) hypertension (principal); Z00.00 Encounter for general adult medical examination without abnormal findings; Z11.4 Encounter for screening for human immunodeficiency virus [HIV]; Z11.59 Encounter for screening for other viral diseases
CPT/HCPCS: 36415; 80053; 80061; 86704; 86706; 87340; 87389; 83036

== ENCOUNTER → 2025-06-07 02:14 | Outpatient (CLI) | payer BC, SELFPAY ==
--- NOTE | 2025-06-07 07:15 | DI.MAMMO_ITS ---
Exam(s) MAMMO SCREENING EXAM: MAMMO SCREENING CLINICAL HISTORY: screening,Z12.39. TECHNIQUE: Bilateral full field digital CC and MLO mammographic images were obtained with 3D tomosynthesis and utilizing computer aided detection (CAD). COMPARISON: Prior mammograms were reviewed. FINDINGS: There has been no significant change in the appearance and distribution of the fibroglandular tissue. There are no new spiculated masses nor malignant appearing microcalcification groups. There is no significant architectural distortion nor skin thickening-retraction. IMPRESSION: No radiographic evidence of malignancy. BI-RADS Category 1 - Negative Breast Density - Category B - There are scattered areas of fibroglandular density. Breast density Category C or D implies that the patient has dense breast tissue. Dense breast tissue can make it harder to find cancer on a mammogram. Dense breast tissue is also associated with an increased risk of breast cancer. This information about the result of the mammogram report was provided to the patient to raise their awareness. Use this report when you speak with the patient about their risks for breast cancer, which includes their family history. At that time, you may recommend additional screening tests (Ultrasound or MRI) as these tests may add significant information. A negative radiographic report should not delay biopsy if a dominant or clinically suspicious mass is present. Up to ten percent of cancers are not identified on mammography. A negative report may reinforce clinical impression. Adenosis and dense breasts may obscure an underlying neoplasm. False positive reports average 6 to 10%. Patient will receive a letter notifying them of these results.
== END ==
LOC: DI 02:14
PROVIDERS: PCP Nurse Practitioner Family; Visit Provider Nurse Practitioner Family
DX: Z12.31 Encounter for screening mammogram for malignant neoplasm of breast (principal); R92.323 Mammographic fibroglandular density, bilateral breasts
CPT/HCPCS: 77063; 77067